=== PATIENT | male | born 1970 | race Hispanic/Latino ===

== ENCOUNTER 2018-09-19 11:58 | Outpatient (CLI) | payer OTHER ==
--- NOTE | 2018-09-19 13:40 | XRay Report ---
RIGHT RIBS, 3 VIEWS: History: pain. Routine views of the rib cage demonstrate normal mineralization with no significant contour abnormalities, fractures or destructive lesions. PA view of the chest demonstrates no underlying cardiopulmonary abnormalities, fluid or pneumothorax. IMPRESSION: Unremarkable right rib series.
== END 2018-09-19 11:59 | disposition home or self-care (01) ==
LOC: SPVIMAG 11:58
PROVIDERS: ATTEND Internal Medicine
DX: R07.81 Pleurodynia (principal)